=== PATIENT | female | born 1960 | race Caucasian/White ===

== ENCOUNTER 2022-08-26 18:27 | Inpatient (IN) | payer SELFPAY ==
[~2022-08-26] VITALS: Ht 157.5 cm; Wt 56.2 kg
--- NOTE | 2022-08-26 19:19 | NUR ---
C/O BILATERAL LEG SWELLING NOTICED TODAY. AXO3. PLACED ON O2 2L NC
--- NOTE | 2022-08-26 19:31 | NUR ---
DR. KELLEY AT BEDSIDE
--- NOTE | 2022-08-26 20:01 | NUR ---
22G STARTED ON L WRIST. BLOOD COLLECTED SENT TO [facility]
--- NOTE | 2022-08-26 20:02 | NUR ---
X-RAY AT BEDSIDE
[2022-08-26 20:32] LABS: BASOPHILS # (AUTO) 0.1 K/uL (0.0-0.2); EOSINOPHILS % (AUTO) 1.4 % (0.0-6.0); HEMATOCRIT 37 % (33-45); HEMOGLOBIN 11.5 g/dL (11.5-14.8); LYMPHOCYTES # (AUTO) 0.6 K/uL (0.8-4.8); LYMPHOCYTES % (AUTO) 8.4 % (20.0-44.0); MEAN CORPUSCULAR HGB CONC 31 g/dl (31.0-36.0); MEAN CORPUSCULAR VOLUME 84 fL (82-100); MONOCYTES # (AUTO) 0.5 K/uL (0.1-1.30); NEUTROPHILS % (AUTO) 82.2 % (43.0-81.0); PLATELET COUNT (AUTO) 616 K/uL (150-450); RED BLOOD CELL COUNT(AUTO) 4.38 MIL/uL (4.0-5.2); WHITE BLOOD COUNT (AUTO) 7.3 K/uL (4.3-11.0)
[2022-08-26 20:34] LABS: CALCIUM, SERUM 9.3 mg/dL (8.5-10.1); CARBON DIOXIDE 29 mmol/L (21-32); CHLORIDE 105 mmol/L (98-107); CREATININE 0.8 mg/dL (0.6-1.3); GLUCOSE 97 mg/dL (74-106); POTASSIUM 4.4 mmol/L (3.5-5.1); SODIUM SERUM 141 mmol/L (136-145); UREA NITROGEN, BLOOD 23 mg/dL (7-18)
[2022-08-26 20:46] LABS: ALANINE AMINOTRANSFERASE 26 U/L (12-78); ALBUMIN 3.4 g/dL (3.4-5.0); ALKALINE PHOSPHATASE 82 U/L (46-116); ASPARTATE AMINOTRANSFERASE 23 U/L (15-37); BILIRUBIN,DIRECT 0.1 mg/dL (0.0-0.2); BILIRUBIN,TOTAL 0.4 mg/dL (0.2-1.0); TOTAL PROTEIN, SERUM 6.8 g/dL (6.4-8.2)
--- NOTE | 2022-08-26 21:12 | NUR ---
URINE COLLECTED SENT TO LAB
[2022-08-26 21:45] LABS: BILIRUBIN,URINE NEGATIVE (NEGATIVE); COLOR,URINE YELLOW (YELLOW); LEUKOCYTE ESTERASE ,URINE NEGATIVE (NEGATIVE); NITRITE, URINE NEGATIVE (NEGATIVE); PH,URINE 5.5 (5.0-8.0); PROTEIN,URINE TRACE mg/dl (NEGATIVE); UGLUCOSE NEGATIVE (NEGATIVE); UROBILINOGEN,URINE 0.2 EU/dL (0.2)
[2022-08-26] MEDS ORDERED: CEFTRIAXONE 1GM BAG (ER ONLY) 50 ML IV ONE (21:54)
[2022-08-26] MEDS ORDERED: predniSONE 20 MG TABLET ONE (21:55)
[2022-08-26 21:59] LABS: BACTERIA,URINE None seen /HPF (None Seen); MUCUS,URINE Few /LPF (None Seen); RBC,URINE NONE SEEN /HPF (0-2)
[2022-08-26] MEDS ORDERED: predniSONE 50 MG TABLET PO ONE (22:00)
[2022-08-26] MEDS ORDERED: ONDANSETRON HCL/PF 4 MG/2 ML VIAL IVP PRN (22:00)
[2022-08-26] MEDS ORDERED: MAGNESIUM HYDROXIDE 30 ML UDC PO PRN (22:00)
[2022-08-26] MEDS ORDERED: CEFTRIAXONE 1GM BAG (ER ONLY) 1 GM/50 ML PIGGYBACK IV ONE (22:00)
[2022-08-26] MEDS ORDERED: ZOLPIDEM TARTRATE 5 MG TABLET PO PRN (22:00)
[2022-08-26] MEDS ORDERED: MAG HYDROX/AL HYDROX/SIMETH 30 ML UDC PO PRN (22:00)
[2022-08-26] MEDS ORDERED: ACETAMINOPHEN 325 MG TABLET PO PRN (22:00)
[2022-08-26] MEDS ORDERED: Z GUARD REMEDY 4 OZ OINT TP PRN (22:00)
[2022-08-26] MEDS ORDERED: AZITHROMYCIN 500 MG in IV D5W 250 ML IV ONE (22:00)
--- NOTE | 2022-08-26 22:04 | NUR ---
COVID AND MRSA SWAB SENT TO LAB
--- NOTE | 2022-08-26 22:24 | NUR ---
PT GOING TO RM 323-1. ADMITTING MADE AWARE.
[2022-08-26] MEDS ORDERED: AZITHROMYCIN 500 MG VIAL ONE (22:34)
--- NOTE | 2022-08-26 22:44 | NUR ---
REPORT GIVEN TO VISHNU Jarrell RN FOR RAFAEL
[2022-08-26] MEDS ORDERED: ENOXAPARIN SODIUM 30 MG/0.3 ML DISP.SYRIN SQ SCH (22:45)
[2022-08-26 23:20] VITALS: BP 116/68
--- NOTE | 2022-08-26 23:20 | NUR ---
ZOO DIRECTORPERPETUAL INVENTORY CLERK NOTES REPORT RECEIVED FROM GORGE. PATIENT WAS TRANSFERRED FROM ER VIA GURNEY, WITH NO SIGNS OF DISTRESS. ORIENTED PATIENT TO ROOM SET UP AND EDUCATED PATIENT ON THE USE OF CALL LIGHT. VS TAKE AND RECORDED. SKIN ASSESSMENT DONE AND SKIN IS INTACT. HAS BLE EDEMA PITTING +1. ALL BELONGINGS CHECKED AND BELONGING LIST SIGNED.
--- NOTE | 2022-08-26 23:22 | NUR ---
PT TRANSFERED TO 3W VIA ACLS PROTOCOL
[2022-08-27] MEDS ORDERED: LORAZEPAM 1 MG TABLET PO PRN ×2 (00:30→11:00)
[2022-08-27 02:26] VITALS: BP 125/76
[2022-08-27 04:00] VITALS: BP 113/66
[2022-08-27 04:35] LABS: ABG BASE EXCESS 1.4 mmol/L; ABG PCO2 40.5 mmHg (35.0-45.0); ABG PH 7.423 (7.350-7.450); ABG PO2 106.9 mmHg (75.0-100.0); COHb 0.9 % (0.5-1.5); MetHb 0.3 % (0.0-1.5); O2Hb 96.4 % (94.0-97.0); SITE, ABG Right Brachial; VENT MODE, BG nasal cannula
[2022-08-27 06:04] LABS: BASOPHILS # (AUTO) 0.1 K/uL (0.0-0.2); BASOPHILS % (AUTO) 0.9 % (0.0-2.0); HEMATOCRIT 35 % (33-45); HEMOGLOBIN 10.9 g/dL (11.5-14.8); LYMPHOCYTES # (AUTO) 0.3 K/uL (0.8-4.8); LYMPHOCYTES % (AUTO) 4.4 % (20.0-44.0); MEAN CORPUSCULAR HGB CONC 31 g/dl (31.0-36.0); MEAN CORPUSCULAR VOLUME 84 fL (82-100); MONOCYTES % (AUTO) 0.7 % (2.0-12.0); NEUTROPHILS # (AUTO) 6.9 K/uL (1.8-8.9); PLATELET COUNT (AUTO) 595 K/uL (150-450); RED BLOOD CELL COUNT(AUTO) 4.14 MIL/uL (4.0-5.2); WHITE BLOOD COUNT (AUTO) 7.3 K/uL (4.3-11.0)
[2022-08-27 06:20] LABS: CALCIUM, SERUM 8.7 mg/dL (8.5-10.1); CREATININE 0.7 mg/dL (0.6-1.3); MAGNESIUM 2.3 mg/dL (1.8-2.4); PHOSPHORUS 3.3 mg/dL (2.5-4.9); POTASSIUM 4.2 mmol/L (3.5-5.1)
[2022-08-27] MEDS: methylPREDNISolone SOD SUCC 40 MG/ML VIAL IV SCH ×3 (06:45→22:19)
[2022-08-27 07:00] VITALS: BP 108/65
--- NOTE | 2022-08-27 07:25 | NUR ---
SALES REPRESENTATIVE PUBLICATIONS OPENING NOTES RECEIVED PATIENT AWAKE IN BED RESTING. APPEARS COMFORTABLE. A/O X 4. NO S/S OF PAIN NOTED AT THIS TIME. ON 3L OXYGEN VIA NC, BREATHING EVEN AND UNLABORED, NO DISTRESS NOTED AT THIS TIME. IV ACCESS LFA #22G, INTACT AND PATENT, ON SALINE LOCKED. PATIENT WITH EXTERNAL CHIN STRAP CUTTER WITH CURRENT READING OF SINUS TACH @ 116. SAFETY MEASURES IN PLACED. WILL CONTINUE TO MONITOR
--- NOTE | 2022-08-27 07:39 | NUR ---
PHARMACIST APPRENTICE CLOSING NOTES PATIENT AWAKE IN BED RESTING. APPEARS COMFORTABLE. A/O X 4. NO S/S OF PAIN NOTED AT THIS TIME. ON 3L OXYGEN VIA NC, BREATHING EVEN AND UNLABORED, NO DISTRESS NOTED AT THIS TIME. IV ACCESS LFA #22G, INTACT AND PATENT, ON SALINE LOCKED. PATIENT WITH EXTERNAL CARPENTRY INSTRUCTOR WITH CURRENT READING OF SINUS TACH @ 116. SAFETY MEASURES MAINTAINED. ALL NEEDS ATTENDED. WILL ENDORSE TO THE NEXT SHIFT.
[2022-08-27] MEDS ORDERED: PANTOPRAZOLE 40 MG VIAL IV SCH (09:00)
[2022-08-27] MEDS ORDERED: BENZ-13 PO (09:48)
[2022-08-27] MEDS ORDERED: MYCO500T PO (09:48)
[2022-08-27] MEDS ORDERED: LORA-259 PO (09:48)
[2022-08-27] MEDS ORDERED: ALBU8.5H8 IH (09:48)
[2022-08-27] MEDS ORDERED: DULO60CA45 PO (09:48)
[2022-08-27] MEDS ORDERED: LEVO5TAB13 PO (09:49)
[2022-08-27] MEDS ORDERED: LEFL20TA PO (09:49)
[2022-08-27] MEDS ORDERED: PANT40TA2 PO (09:49)
[2022-08-27] MEDS ORDERED: ALBUTEROL FS 2.5 MG/0.5 ML VIAL.NEB NEB PRN (11:00)
[2022-08-27] MEDS ORDERED: HOME MED MISCELLANEOUS XX SCH (11:00)
[2022-08-27 12:00] VITALS: BP 94/70
--- NOTE | 2022-08-27 12:23 | NUR ---
Three home medications taken regularly by patient unavailable per pharmacy, provided by patient. All three meds, including other meds verified by pharmacist, Charge nurse, made aware
[2022-08-27] MEDS: LEFLUNOMIDE 20 MG PO SCH (13:54)
--- NOTE | 2022-08-27 14:10 | NUR ---
Received US tech report: Positive DVT in the right posterior tibial vein, report relayed to , charge nurse aware...awaiting orders
--- NOTE | 2022-08-27 15:23 | NUR ---
New IV line inserted on right hand #22 SL, Old infiltrated/leaking IV on right forearm removed
[2022-08-27] MEDS: MYCOPHENOLATE 500 MG PO SCH (16:07)
[2022-08-27] MEDS: APIXABAN 5 MG TABLET PO SCH (16:07)
[2022-08-27 16:17] VITALS: BP 121/83
[2022-08-27] MEDS ORDERED: MYCOPHENOLATE MOFETIL 250 MG CAPSULE PO SCH (17:00)
[2022-08-27] MEDS: LEVOCETIRIZINE 5 MG PO SCH (17:50)
--- NOTE | 2022-08-27 19:28 | NUR ---
Patient awake, A/O x4, No pain, SOB nor distress noted. On 3L nc, tolerating well. IV access at R hand #22, sl. On external heart monitor, heart rhythm sinus tachy at 115. Patient positive to DVT-posterior tibial vein, now on Eliquiz. All meds given as ordered, all needs met. Safety protocols in placed. Will be endorsed to pm shift nurse for jann.
--- NOTE | 2022-08-27 19:30 | NUR ---
SECURITY INCIDENT RESPONSE ENGINEER OPENING NOTES RECEIVED PATIENT AWAKE IN BED RESTING. APPEARS COMFORTABLE. A/O X 4. NO S/S OF PAIN NOTED AT THIS TIME. ON 3L OXYGEN VIA NC, BREATHING EVEN AND UNLABORED, NO DISTRESS NOTED AT THIS TIME. IV ACCESS RIGHT HAND #22G, INTACT AND PATENT, ON SALINE LOCKED. PATIENT WITH EXTERNAL SOUBRETTE WITH CURRENT READING OF SINUS TACH @ 115. SAFETY MEASURES IN PLACE WITH BED IN LOWEST LOCKED POSITION. SIDE RAILS UP. CALL LIGHT AND TRAY WITHIN EASY REACH. WILL CONTINUE WITH THE PLAN OF CARE.
[2022-08-27 20:00] VITALS: BP 121/68
[2022-08-27] MEDS ORDERED: ENOXAPARIN SODIUM 40 MG/0.4 ML DISP.SYRIN SQ SCH (21:00)
[2022-08-27] MEDS: CEFTRIAXONE 1 G in IV D5W 50 ML IV SCH (22:18)
[2022-08-27] MEDS: BENZONATATE 100 MG CAPSULE PO PRN (22:19)
--- NOTE | 2022-08-27 22:30 | NUR ---
RN NOTES- IV ACCESS RIGHT HAND #22G DISLODGED. NEW IV ACCESS ON LEFT JV #20G, INTACT AND PATENT, SALINE LOCKED.
[2022-08-28] MEDS: methylPREDNISolone SOD SUCC 40 MG/ML VIAL IV SCH (04:53)
--- NOTE | 2022-08-28 07:28 | NUR ---
OPENING NOTE PATIENT AWAKE IN BED, A/OX4 ON NC 3L, WITH NO S/S OF SOB OR DISTRESS. IV ACCESS ON THE L JUGULAR VEIN G20, SL, INTACT AND PATENT, FLUSHING WELL. SKIN INTACT WITH BLE EDEMA. PAIN LEVEL 0. AMBULATORY WITH ASSIST. FALL AND SAFETY PRECAUTION IN PLACE: BED LOCKED AND AT THE LOWEST POSITION, SRx2, CALL LIGHT WITHIN REACH.
--- NOTE | 2022-08-28 07:29 | NUR ---
LEATHER CURRIER CLOSING NOTES PATIENT AWAKE IN BED RESTING. APPEARS COMFORTABLE. A/O X 4. NO S/S OF PAIN NOTED AT THIS TIME. ON 3L OXYGEN VIA NC, BREATHING EVEN AND UNLABORED, NO DISTRESS NOTED AT THIS TIME. IV ACCESS LEFT JV #20G INTACT AND PATENT, ON SALINE LOCK. PATIENT WITH EXTERNAL HAT PARTS CUTTER MACHINE WITH CURRENT READING OF SINUS TACH. ALL NEEDS ATTENDED. ALL MEDS GIVEN. SAFETY MEASURES MAINTAINED. WILL ENDORSE TO THE NEXT SHIFT.
[2022-08-28 07:30] VITALS: BP 127/79
[2022-08-28] MEDS: PANTOPRAZOLE 40 MG TABLET.DR PO SCH (08:23)
[2022-08-28] MEDS: DULOXETINE HCL 30 MG CAPSULE.DR PO SCH (08:23)
[2022-08-28] MEDS: LEFLUNOMIDE 20 MG PO SCH (08:24)
[2022-08-28] MEDS: APIXABAN 5 MG TABLET PO SCH ×2 (08:26→17:11)
[2022-08-28 09:26] LABS: BASOPHILS # (AUTO) 0.1 K/uL (0.0-0.2); BASOPHILS % (AUTO) 1.1 % (0.0-2.0); HEMATOCRIT 40 % (33-45); HEMOGLOBIN 12.3 g/dL (11.5-14.8); LYMPHOCYTES # (AUTO) 0.3 K/uL (0.8-4.8); LYMPHOCYTES % (AUTO) 2.5 % (20.0-44.0); MEAN CORPUSCULAR HGB CONC 31 g/dl (31.0-36.0); MEAN CORPUSCULAR VOLUME 84 fL (82-100); MONOCYTES # (AUTO) 0.1 K/uL (0.1-1.30); MONOCYTES % (AUTO) 0.6 % (2.0-12.0); NEUTROPHILS # (AUTO) 11.5 K/uL (1.8-8.9); NEUTROPHILS % (AUTO) 95.8 % (43.0-81.0); PLATELET COUNT (AUTO) 683 K/uL (150-450); RED BLOOD CELL COUNT(AUTO) 4.74 MIL/uL (4.0-5.2); WHITE BLOOD COUNT (AUTO) 12.1 K/uL (4.3-11.0)
[2022-08-28 09:37] LABS: POTASSIUM 4.6 mmol/L (3.5-5.1)
[2022-08-28] MEDS: MYCOPHENOLATE 500 MG PO SCH ×2 (10:25→17:08)
[2022-08-28] MEDS: BENZONATATE 100 MG CAPSULE PO PRN ×2 (10:26→22:34)
[2022-08-28 11:30] VITALS: BP 127/68
[2022-08-28 15:30] VITALS: BP 119/69
[2022-08-28] MEDS: LEVOCETIRIZINE 5 MG PO SCH (17:08)
--- NOTE | 2022-08-28 18:49 | NUR ---
CLOSING NOTE 323-1 PATIENT AWAKE, RESTING, A/OX4 ON NC 2L, WITH NO S/S OF SOB OR DISTRESS. IV ACCESS REMAINS ON THE L JUGULAR VEIN G20, SL, INTACT AND PATENT, FLUSHING WELL. MEDICATION ADMINISTERED ORDERED/ PER PATIENT STATUS. PAIN LEVEL 0. FALL AND SAFETY PRECAUTION IN MAINTAINED: BED LOCKED AND AT THE LOWEST POSITION, SRx2, CALL LIGHT WITHIN REACH.
--- NOTE | 2022-08-28 19:30 | NUR ---
INTAKE MAN OPENING NOTE RECEIVED PT AWAKE IN BED. A/OX4, ABLE TO MAKE NEEDS KNOWN. ON O2 2L VIA NC WITH HUMIDIFIER, WITH NO S/S OF SOB OR DISTRESS. DENIES PAIN AT THIS TIME. IV ACCESS ON L JUGULAR VEIN #G20, SL, INTACT, PATENT, FLUSHING WELL. FALL AND SAFETY PRECAUTION IN PLACE: BED LOCKED AND AT THE LOWEST POSITION, SIDE RAILS UP X2, CALL LIGHT AND TRAY TABLE WITHIN REACH. WILL CONTINUE TO MONITOR AND ASSIST. Addendum: 08/28/22 at 2334 by YANDEL KEE RN ON HEADLIGHT ASSEMBLER READING ST WITH PVC'S, 115 HR.
[2022-08-28 20:00] VITALS: BP 123/83
[2022-08-28] MEDS: CEFTRIAXONE 1 G in IV D5W 50 ML IV SCH (21:30)
[2022-08-29] VITALS: BP 111/82
[2022-08-29 04:00] VITALS: BP 125/89
[2022-08-29 06:20] LABS: BASOPHILS # (AUTO) 0.2 K/uL (0.0-0.2); BASOPHILS % (AUTO) 2.1 % (0.0-2.0); EOSINOPHILS % (AUTO) 1.5 % (0.0-6.0); HEMATOCRIT 36 % (33-45); HEMOGLOBIN 11.6 g/dL (11.5-14.8); LYMPHOCYTES # (AUTO) 0.9 K/uL (0.8-4.8); LYMPHOCYTES % (AUTO) 11.2 % (20.0-44.0); MEAN CORPUSCULAR HGB CONC 32 g/dl (31.0-36.0); MEAN CORPUSCULAR VOLUME 85 fL (82-100); MONOCYTES # (AUTO) 0.7 K/uL (0.1-1.30); MONOCYTES % (AUTO) 8.4 % (2.0-12.0); NEUTROPHILS # (AUTO) 6.4 K/uL (1.8-8.9); NEUTROPHILS % (AUTO) 76.8 % (43.0-81.0); PLATELET COUNT (AUTO) 619 K/uL (150-450); WHITE BLOOD COUNT (AUTO) 8.3 K/uL (4.3-11.0)
[2022-08-29 07:01] LABS: CALCIUM, SERUM 8.9 mg/dL (8.5-10.1); CREATININE 0.8 mg/dL (0.6-1.3); MAGNESIUM 2.4 mg/dL (1.8-2.4); PHOSPHORUS 3.7 mg/dL (2.5-4.9); POTASSIUM 3.9 mmol/L (3.5-5.1)
--- NOTE | 2022-08-29 07:12 | NUR ---
WEBSITE PROGRAMMER CLOSING NOTE PT AWAKE IN BED. A/OX4, ABLE TO MAKE NEEDS KNOWN. ON O2 2L VIA NC WITH HUMIDIFIER, WITH NO S/S OF SOB OR DISTRESS. DENIES PAIN AT THIS TIME. ON RETOUCHING OPERATOR READING ST, 114 HR. IV ACCESS ON L JUGULAR VEIN #G20, SL, INTACT, PATENT, FLUSHING WELL. ALL CARE PROVIDED AND MEDS TOLERATED WELL. FALL AND SAFETY PRECAUTION MAINTAINED: BED LOCKED AND AT THE LOWEST POSITION, SIDE RAILS UP X3, CALL LIGHT AND TRAY TABLE WITHIN REACH. WILL ENDORSE RAFAEL TO DAY SHIFT NURSE.
[2022-08-29] MEDS: PANTOPRAZOLE 40 MG TABLET.DR PO SCH (07:40)
--- NOTE | 2022-08-29 07:48 | NUR ---
DENSITOMETRIST OPENING NOTE RECEIVED PT AWAKE IN BED. A/OX4, ABLE TO MAKE NEEDS KNOWN. ON O2 2L VIA NC WITH HUMIDIFIER, WITH NO S/S OF SOB OR DISTRESS. DENIES PAIN AT THIS TIME. IV ACCESS ON L JUGULAR VEIN #G20, SL, INTACT, PATENT, AND FLUSHING WELL. ON TELE MONITOR ST 110. FALL AND SAFETY PRECAUTION IN PLACE: BED LOCKED AND AT THE LOWEST POSITION, SIDE RAILS UP X2, CALL LIGHT AND TRAY TABLE WITHIN REACH. WILL CONTINUE TO MONITOR AND ASSIST PATIENT.
[2022-08-29 08:00] VITALS: BP 127/88
[2022-08-29] MEDS: DULOXETINE HCL 30 MG CAPSULE.DR PO SCH (08:25)
[2022-08-29] MEDS: APIXABAN 5 MG TABLET PO SCH (08:31)
[2022-08-29] MEDS: LEFLUNOMIDE 20 MG PO SCH (08:31)
[2022-08-29] MEDS: MYCOPHENOLATE 500 MG PO SCH (08:31)
[2022-08-29] MEDS ORDERED: methylPREDNISolone SOD SUCC 40 MG/ML VIAL IV SCH (09:00)
[2022-08-29] MEDS ORDERED: APIX5TAB PO (10:50)
[2022-08-29] MEDS ORDERED: AZIT250T13 PO (10:50)
[2022-08-29] MEDS ORDERED: APIX5TAB4 PO (10:50)
[2022-08-29] MEDS ORDERED: PRED5TAB48 PO (10:50)
[2022-08-29] MEDS ORDERED: PRED20TA PO (10:50)
[2022-08-29] MEDS ORDERED: LEVA15HF4 INH (10:50)
--- NOTE | 2022-08-29 15:21 | NUR ---
RN DISCHARGED NOTES PT DISCHARGED HOME IN STABLE CONDITION. A/O X4. ABLE TO MAKE NEEDS KNOWN. ON PORTABLE O2 2L, TOLERATING WELL, NO SOB NOTED. NO SKIN ISSUES NOTED. ALL BELONGINGS ACCOUNTED FOR AND PT SIGNED BELONGINGS LIST. IV ACCESS ON LEFT JUGULAR VEIN G#20 REMOVED WITH NO ACTIVE BLEEDING NOTED, DRY DRESSING APPLIED AT SITE. HEALTH TEACHINGS AND DISCHARGE INSTRUCTIONS GIVEN TO PT, VERBALIZED UNDERSTANDING. ALL MEDICATIONS COMPLETE AND HANDED TO THE PATIENT. NAME ARMBAND REMOVED. PT LEFT UNIT @ 1520 VIA WHEELCHAIR WITH PORTABLE OXYGEN, ACCOMPANIED BY ME TO NICHELLE, PATIENT'S BISHOP WILL TAKE PATIENT HOME. CHARGE NURSE AND DOCTOR AWARE OF D/C.
== END 2022-08-29 15:20 | disposition home or self-care (01) | DRG 196 ==
LOC: ER 18:39 → TELE 22:29 → MED 08-29 10:34
PROVIDERS: ADMIT Nurse Practitioner Acute Care; ATTEND Nurse Practitioner Acute Care
DX: M05.10 Rheumatoid lung disease with rheumatoid arthritis of unspecified site (principal); J15.9 Unspecified bacterial pneumonia; J96.21 Acute and chronic respiratory failure with hypoxia; I82.441 Acute embolism and thrombosis of right tibial vein; J84.178 Other interstitial pulmonary diseases with fibrosis in diseases classified elsewhere; J40 Bronchitis, not specified as acute or chronic; Z79.899 Other long term (current) drug therapy; R00.0 Tachycardia, unspecified; Z79.52 Long term (current) use of systemic steroids; Z20.822 Contact with and (suspected) exposure to COVID-19; R60.0 Localized edema; Z88.2 Allergy status to sulfonamides; R79.89 Other specified abnormal findings of blood chemistry; F41.9 Anxiety disorder, unspecified
CPT/HCPCS: 36415; 36600; 71045-TC; 71250-TC; 80048-TC; 80076-TC; 81001; 82803-TC; 83735-TC; 83880; 84100-TC; 84484-TC; 85025-TC; 87081-TC; 87086-TC; 93307-TC; 93970-TC; A4223; C9113; G0378; J0456; J0696; J1650; J2920; J3490; J7060